=== PATIENT | female | born 1950 | race Caucasian/White ===

== ENCOUNTER 2021-07-20 15:13 | Emergency (ER) | payer OTHER, SELFPAY ==
[2021-07-20 15:15] VITALS: BP 150/69; PULSE 74; RESP 18; TEMP 36; O2SAT 99; BMI 35.7
--- NOTE | 2021-07-20 18:19 | ED_ITS ---
HPI - General Adult General Chief complaint: Extremity Injury, Lower Stated complaint: back in back of left knee Time Seen by Provider: 07/20/21 18:17 Source: patient Mode of arrival: ambulatory Limitations: no limitations History of Present Illness HPI narrative: Patient is a 70 year old female presenting to the emergency department today with left knee pain. Patient states that for the last 3 days, she has had pain behind her left knee. Patient denies any dizziness, lightheadedness, abdominal pain, nausea, vomiting, fever, chills, blurry vision, double vision, loss of vision, chest pain, difficulty breathing, shortness of breath, back pain, night sweats, pain with urination, increased urinary frequency, increased urinary urgency, blood in her urine or stool, syncope or a near syncopal episode, recent trauma or falls, bowel incontinence, bladder incontinence, bowel retention, bladder retention, or any other complaints at this time. Onset (ago): day(s) (3) Location: left and lower extremity Radiation: non-radiation Severity: mild Severity scale (1-10): 1 Quality: dull Pain Consistency: constant Relieving factors: none Exacerbating factors: movement Associated symptoms: denies other symptoms Treatments prior to arrival: none Related Data Previous Rx's Medication Instructions Recorded prednisone 20 mg tablet 20 mg PO DAILY 12 days #26 tabs 07/20/21 Allergies Allergy/AdvReac Type Severity Reaction Status Date / Time No Known Allergies Allergy Unverified 10/30/19 18:13 Review of Systems Constitutional: Constitutional: Reports no additional constitutional complaints, Denies chills, Denies fever(s) and Denies night sweats Eyes: Eyes: Reports no additional eye complaints, Denies blurry vision, Denies change in vision, Denies diplopia, Denies eye discharge, Denies loss of vision and Denies eye pain ENT: Denies dizziness Cardiovascular: Cardiovascular: Reports no additional cardiovascular complaints, Denies chest pain, Denies lightheadedness, Denies Loss of Consciousness and Denies dyspnea Respiratory: Respiratory: Reports no additional respiratory complaints and Denies dyspnea Gastrointestinal: Gastrointestinal: Reports no additional gastrointestinal complaints, Denies abdominal pain, Denies melena, Denies hematochezia, Denies change in bowel habits and Denies change in stool character Genitourinary: Genitourinary: Denies hematuria, Denies urinary frequency, Denies dysuria, Denies urinary incontinence, Denies urinary hesitancy and Denies urinary urgency Musculoskeletal: Musculoskeletal: Reports no additional musculoskeletal complaints, Denies numbness and Denies tingling Comments: left knee pain Neurologic: Denies dizziness, Denies loss of vision, Denies numbness and Denies tingling Psychiatric: Psychiatric: Reports no additional psychiatric complaints Endocrine: Endocrine: Reports no additional endocrine complaints Hematologic/Lymphatic: Hematologic/Lymphatic: Reports no additional hematologic/lymphatic complaints Allergic/Immunologic: Allergic/Immunologic: Reports no additional allergic/immunologic complaints [facility] Past Medical History Attestation statement: The following information was validated with the patient. Source: old records reviewed Social History Social History Advance Directives: No Advance Directives Information Provided: Yes Physical Exam ED Vital Signs: Vital Signs - 24 hr 07/20/21 15:15 Temperature 96.8 F Pulse Rate 74 Respiratory Rate 18 Blood Pressure 150/69 H Pulse Oximetry 99 Oxygen Delivery Method Room Air BMI result Body Mass Index 35.7 Const General: cooperative, no acute distress, alert and awake Nutritional Appearance: well nourished Orientation/consciousness: patient oriented x3 Limitations: no limitations HENMT Head: Yes normal to inspection and Yes atraumatic Ears: hearing grossly normal bilaterally and external ears normal General nose exam: Normal external nose present, no nasal discharge noted and no epistaxis Face and sinus: Yes normal facial exam, No abrasion and No laceration Mouth: Normal oral and palatal mucosa present, no drooling and no muffled voice Eyes General: appearance normal, both eyes and all related structures Periorbital: periorbital findings normal Eyelids: Yes eyelids normal Conjunctivae: conjunctivae normal Pupils: Equal, round and reactive pupils present EOM: EOMs intact bilaterally Neck Neck: Yes normal visual inspection, Yes full ROM and Yes no lymphadenopathy Chest Chest palpation & inspection: normal inspection of the chest Resp Effort & Inspection: normal respiratory effort and able to speak in complete sentences Auscultation: clear to auscultation bilaterally Cardio Rate: regular rate Rhythm: regular rhythm GI Inspection: Yes normal to inspection Neuro General: patient oriented x3 and moves all extremities Cranial nerves: Yes Equal, round and reactive pupils present Cognition (Neuro): normal cognition Motor exam (neuro): 5/5 motor strength present throughout Sensory Exam: Normal double simultaneous stimulation for sensation Coordination: [id number] test normal Extrem General: Yes normal to inspection, Yes full ROM and Yes capillary refill normal Psych Appearance: grossly normal Mental Status: mental status grossly normal Affect: normal affect Attitude: cooperative Thought process: Normal thought process present Thought content: Normal thought content present Insight: Good insight present (Psych) Medical Decision Making MDM Narrative Medical decision making narrative: Patient is a 70 year old female presenting to the emergency department today with left knee pain. Patient's physical exam was unremarkable. Due to the patient's negative physical examination and her clinical presentation, I am suspicious of a bakers cyst. The patient did not have any calf pain, calf swelling, calf warmth, or calf redness. I was not suspicious for a DVT. I explained my physical exam findings to the patient. I answered all questions asked by the patient. Patient received IM Solu-medrol which she stated helped her symptoms significantly. I stressed the importance of the patient taking her medication as prescribed. I stressed the importance of the patient following up with her primary care provider and an orthopedic provider. I stressed the importance of the patient returning to the emergency department immediately if her symptoms were to worsen or if she were to develop any dizziness, shortness of breath, difficulty breathing, chest pain, blurry vision, loss of vision, nausea, vomiting, abdominal pain, fever, chills, back pain, or any other complaints. Patient verbalized agreement and understanding with this treatment plan and discharge. Differential Diagnosis Differential Diagnosis: bakers cyst, knee pain, internal knee injury Medical Records Medical records reviewed: Yes I reviewed the patient's medical records. Discharge Plan Discharge Clinical Impression: Dawson's cyst of knee Patient Disposition: Home, Self-Care Instructions: Bakers Cyst (ED) Additional Instructions: Follow up with your primary care provider and orthopedist. Return to the emergency department immediately if your symptoms worsen or if you develop any dizziness, shortness of breath, difficulty breathing, chest pain, blurry vision, loss of vision, nausea, vomiting, abdominal pain, fever, chills, back pain, or any other complaints. Prescriptions: New prednisone 20 mg tablet 20 mg PO DAILY 12 Days Qty: 26 0RF Rx Instructions: Take 3 tablets for 5 days THEN; Take 2 tablets for 4 days THEN; Take 1 tablet for 3 days Referrals: [facility] [Provider Group] Thibodeaux,Quirino, [employer] [Primary Care Provider] - Interventions: ED Discharge Assessment Last Done: 07/20/21 19:05 Discharge Date/Time: 07/20/21 19:10 Print Language: Filipino
[2021-07-20] MEDS: methylPREDNISolone Sod Succ 125 MG/2 ML VIAL 120 MG IM (19:06)
== END 2021-07-20 19:10 | disposition home or self-care (01) ==
PROVIDERS: Emergency Provider Internal Medicine; PCP Nurse Practitioner Primary Care
DX: M71.22 Synovial cyst of popliteal space [Baker], left knee (principal); M25.562 Pain in left knee
CPT/HCPCS: 96372; 99283; 99284; J2930

== ENCOUNTER 2021-08-16 07:34 | Outpatient (REF) | payer OTHER, SELFPAY ==
--- NOTE | ~2021-08-16 | XR_ITS ---
EXAMINATION: XR AP KNEE STANDING XR KNEE, LEFT CLINICAL INFORMATION: Bilateral knee pain. COMPARISON: None TECHNIQUE: AP standing view of bilateral knees. Lateral and sunrise views of the left knee. FINDINGS: Mild bilateral medial tibiofemoral cartilage space with marginal osteophyte. Mild left patellofemoral cartilage space loss with retropatellar osteophytes. Quadriceps tendon enthesopathy. No significant joint effusion. XR/XR knee standing BI IMPRESSION: Mild osteoarthritis of bilateral knees.
--- NOTE | ~2021-08-16 | XR_ITS ---
EXAMINATION: XR AP KNEE STANDING XR KNEE, LEFT CLINICAL INFORMATION: Bilateral knee pain. COMPARISON: None TECHNIQUE: AP standing view of bilateral knees. Lateral and sunrise views of the left knee. FINDINGS: Mild bilateral medial tibiofemoral cartilage space with marginal osteophyte. Mild left patellofemoral cartilage space loss with retropatellar osteophytes. Quadriceps tendon enthesopathy. No significant joint effusion. XR/XR knee LT 2V IMPRESSION: Mild osteoarthritis of bilateral knees.
== END 2021-08-16 07:35 | disposition home or self-care (01) ==
LOC: HO.HOSX 07:34
PROVIDERS: Visit Provider Physician Assistant
DX: M17.12 Unilateral primary osteoarthritis, left knee (principal)
CPT/HCPCS: 20610; 73560; 73565; 99202; J1020

== ENCOUNTER 2021-09-20 15:00 | Outpatient (RCR) | payer OTHER, SELFPAY ==
--- NOTE | 2021-08-31 17:16 | MHC.PT.EP ---
[facility] [place] Office [place] Office [place] [facility] [address] [phone] F: [phone] F: [phone] F: [phone] F: [phone] Physical Therapy Plan of Care Date of Evaluation: Date of Surgery: Diagnosis: R knee OA Assessment: Pt is a 70 y/o female referred to PT for eval and treat of OA of L knee who reports an acute onset of pain resulting in decreased tolerance for walking and standing for duration, exiting a vehicle, negotiating curbs and performing squatting activities secondary to decreased L knee ROM and strength, decreased B hip strength, TTP of posterior and medial L knee, and pain with activity. Pt is deemed an appropriate candidate to receive skilled PT in order to address her physical limitations to improve her functional ability. Frequency and Duration: The patient will be seen 2 x / wk x 5 wks. Short Term Goals: Initiate HEP. Improve baseline pain Correction Goals: I with HEP. Pt will be able to walk 2 blocks with at most a little bit of difficulty; initial: quite a bit of difficulty. Pt will report no longer painful entering and exiting a vehicle. Improve L knee extension MMT by at least 1 MMT; initial 4-/5 limited by pain. Treatment Plan: Modalities to reduce pain, spasms and effusion. Manual therapy to restore motion and function. Therapeutic exercise to improve strength and flexibility. Neuromuscular re-education for posture and balance. Therapeutic activities to return to functional activities of daily living. Electronically signed by: Bakari Bar PT. Please sign and return to therapist. Thank you for your referral.
== END 2021-09-20 19:36 | disposition home or self-care (01) ==
LOC: HO.PTCHIC 15:00
PROVIDERS: PCP Nurse Practitioner Primary Care; Visit Provider Physician Assistant
DX: M17.12 Unilateral primary osteoarthritis, left knee (principal)
CPT/HCPCS: 97110; 97112; 97140; 97150; 97161

== ENCOUNTER 2022-06-26 18:05 | Emergency (ER) | payer OTHER, SELFPAY ==
--- NOTE | ~2022-06-26 | XR_ITS ---
EXAMINATION: XR CHEST CLINICAL INFORMATION: Flulike symptoms. Cough. COMPARISON: Previous chest x-ray from 2011 TECHNIQUE: Frontal view of the chest was obtained. FINDINGS: No significant abnormality is noted involving the heart, lungs, mediastinum, bony thorax or soft tissues. XR/XR chest 1V IMPRESSION: Unremarkable examination.
--- NOTE | 2022-06-26 18:34 | ED.GENADULT ---
HPI - General Adult General Chief complaint: General Medical Stated complaint: ear nose throat Time Seen by Provider: 06/26/22 19:40 Source: patient Mode of arrival: ambulatory Limitations: no limitations History of Present Illness HPI narrative: A 71-year-old female came in for evaluation of runny nose, nasal congestion, coughing, facial pressure, left ear pain. Patient just flew from [place] exposed to her sick brother with pneumonia. Related Data Home Medications Medication Instructions Recorded Confirmed blood sugar diagnostic (OrangeSodaTouch #10 ea 08/16/21 Verio test strips) blood-glucose meter (OrangeSodaTouch #1 ea 08/16/21 Verio Flex Meter) famotidine 20 mg tablet 20 mg PO DAILY 08/16/21 gabapentin 100 mg capsule 100 mg PO BEDTIME 08/16/21 hydrochlorothiazide 25 mg tablet 25 mg PO DAILY 08/16/21 lancets 30 gauge (OrangeSodaTouch Delica #100 ea 08/16/21 Plus Lancet) losartan 100 mg tablet 100 mg PO DAILY 08/16/21 metformin 500 mg tablet,extended 500 mg PO BID 08/16/21 release 24 hr metoprolol succinate 200 mg 200 mg PO DAILY 08/16/21 tablet,extended release 24 hr omeprazole 40 mg capsule,delayed 40 mg PO DAILY 08/16/21 release rosuvastatin 5 mg tablet 5 mg PO DAILY 08/16/21 sucralfate 1 gram tablet 1 g PO QID 08/16/21 Previous Rx's Medication Instructions Recorded prednisone 20 mg tablet 20 mg PO DAILY 12 days #26 tabs 07/20/21 amoxicillin 875 mg-potassium 1 tab PO BID #20 tabs 06/26/22 clavulanate 125 mg tablet erythromycin 5 mg/gram (0.5 %) eye 0.5 inch ophthalmic (eye) QID #50 06/26/22 ointment grams Allergies Allergy/AdvReac Type Severity Reaction Status Date / Time No Known Allergies Allergy Unverified 08/16/21 14:40 Review of Systems Review of Systems: All other systems are reviewed and are negative Constitutional: Reports as per HPI and Reports no additional constitutional complaints Eyes: Reports as per HPI and Reports no additional eye complaints Reports system reviewed and no additional complaints, except as documented Cardiovascular: Reports as per HPI and Reports no additional cardiovascular complaints Respiratory: Reports as per HPI and Reports no additional respiratory complaints Gastrointestinal: Reports as per HPI and Reports no additional gastrointestinal complaints Genitourinary: Reports no additional female genitourinary complaints Musculoskeletal: Reports no additional musculoskeletal complaints Skin/Breast: Reports system reviewed and no additional complaints, except as docu Psychiatric: Reports no additional psychiatric complaints Endocrine: Reports no additional endocrine complaints Hematologic/Lymphatic: Reports no additional hematologic/lymphatic complaints Allergic/Immunologic: Reports no additional allergic/immunologic complaints Reports system reviewed and no additional complaints, except as documented and Reports Abnormal speech present [facility] Social History Social History Advance Directives: No Advance Directives Information Provided: Yes Physical Exam ED Vital Signs: Vital Signs - 24 hr 06/26/22 18:35 Temperature 98.5 F Pulse Rate 88 Respiratory Rate 18 Blood Pressure 158/81 H Pulse Oximetry 97 Oxygen Delivery Method Room Air BMI result Body Mass Index 36.3 Vital signs have been reviewed as appeared to be correct. Blood pressure normal. Heart rate normal. Respiration rate normal. Temperature normal. Oxygen saturation normal. Appearance: Alert. Oriented X3. No acute distress. Head: Normal external exam. Normocephalic. Atraumatic. No Victor signs noted. No raccoon eyes noted Eyes: PERRLA. EOMI. Bilateral Conjunctival injection with creamy discharge from both eyes.. Eyelids normal. ENT: Left TM erythema, left maxillary sinus tenderness on percussion . Pharynx erythematous. Uvula midline. Moist mucous membranes. No trismus noted. No drooling noted. No muffled voice noted. Neck: Normal inspection. Neck supple. FROM. No adenopathy. Thyroid Normal. No meningeal signs. No neck mass noted. CVS: Normal heart rate and rhythm. Heart sound normal. No murmurs noted. Pulses normal throughout. Respiratory: No respiratory distress. Painless inspiration. Breath sounds normal. No wheezes/rales/rhonchi noted. Chest nontender. No accessory muscle usage noted or decreased air movement noted. Abdomen: Soft and nontender. Bowel sounds normal in all 4 quadrants. No distention noted. No organomegaly noted. No visible injury noted. Back: No CVA tenderness. Full range of motion noted. Skin: Skin warm and dry. Normal skin color. Normal skin turgor. No rashes/lesions/lacerations noted. Extremities: No lower extremity edema. Extremities exhibit normal range of motion. Extremities nontender. Neuro: Oriented X 3. Cranial nerve exam: II-XII are grossly intact No motor deficit. No sensory deficit. Reflexes normal. Course Course Course Narrative: This is a rapid medical exam. Deferred additional HPI, ROS, PE to primary provider. 71yo female with history of osteoarthritis, DM, HTN here with complaints of headache, nasal congestion, sore throat, rhinorrhea, left ear pain since yesterday. Did not take covid test at home. Will check covid screen. VSS Reevaluation(s) Reevaluation #1: Left TM erythema/left maxillary sinus tenderness will start patient on Augmentin for sinusitis and OM. Patient also showing bilateral conjunctivitis will start on erythromycin ointment. Time: 20:07 Medical Decision Making Differential Diagnosis Differential Diagnoses: The differential diagnosis associated with the presentation includes (OM, sinusitis, viral upper respiratory infection, pneumonia.) Lab Data MDM Lab Attestation statement: I reviewed the patient's lab results. Labs: Lab Results 06/26/22 06/26/22 Range/Units 19:09 20:16 COVID-19 ([facility]ICK) Negative (Negative) COVID-19 Clin Com See Note Influenza Type A (PCR) NEGATIVE (Negative) Influenza Type B (PCR) NEGATIVE (Negative) RSV RNA Qual (PCR) NEGATIVE (Negative) SARS-CoV-2 RNA (RT-PCR) NEGATIVE (Negative) Independent Interpretation I performed an independent interpretation of an: Plain X-Ray (Chest: No acute intrathoracic pathology.) Radiology Impression Discussion of test interpretation with radiology: I have reviewed the radiologist's reading. Discharge Plan Discharge Clinical Impression: Acute left otitis media, Left maxillary sinusitis, Acute bacterial conjunctivitis Patient Disposition: Home, Self-Care Instructions: Sinusitis (ED), Ear Infection (ED) Prescriptions: New amoxicillin-pot clavulanate 875-125 mg tablet 1 tab PO BID Qty: 20 0RF erythromycin 5 mg/gram (0.5 %) ointment 0.5 inch ophthalmic (eye) QID Qty: 50 0RF Rx Instructions: Apply to both eyes every 2-4 hours while awake for 5 days. No Action prednisone 20 mg tablet 20 mg PO DAILY 12 Days Qty: 26 0RF Rx Instructions: Take 3 tablets for 5 days THEN; Take 2 tablets for 4 days THEN; Take 1 tablet for 3 days gabapentin 100 mg capsule 100 mg PO BEDTIME metformin 500 mg tablet extended release 24 hr 500 mg PO BID (DME) lancets [OneTouch Delica Plus Lancet] 30 gauge misc See Rx Instructions .ROUTE .MEDSUPPLY Qty: 100 Rx Instructions: As directed (DME) OneTouch Verio test strips Strip See Rx Instructions Not Applicable DAILY Qty: 10 Rx Instructions: As directed losartan 100 mg tablet 100 mg PO DAILY hydrochlorothiazide 25 mg tablet 25 mg PO DAILY metoprolol succinate 200 mg tablet extended release 24 hr 200 mg PO DAILY rosuvastatin 5 mg tablet 5 mg PO DAILY (DME) blood-glucose meter [[employer] Verio Flex meter] Misc See Rx Instructions .ROUTE .MEDSUPPLY Qty: 1 Rx Instructions: As directed omeprazole 40 mg capsule,delayed release(DR/EC) 40 mg PO DAILY sucralfate 1 gram tablet 1 g PO QID famotidine 20 mg tablet 20 mg PO DAILY Referrals: Quirino Thibodeaux NP [Primary Care Provider] -
[2022-06-26 18:35] VITALS: BP 158/81; PULSE 88; RESP 18; TEMP 36.9; O2SAT 97; BMI 36.3
--- NOTE | 2022-06-26 19:09 | PC.NURSE ---
COVID swab collected and sent as ordered
[2022-06-26 19:48] LABS: COVID-19 Test Negative (Negative); IDNOW Serial# BCCEAD1C
[2022-06-26 21:02] LABS: Influenza A PCR NEGATIVE (Negative); Influenza B PCR NEGATIVE (Negative); Resp Syncy Virus RNA Qual PCR NEGATIVE (Negative); SARS COV2 PCR INHOUSE NEGATIVE (Negative)
[2022-06-26] MEDS: Amoxicillin/Potassium Clav 875 MG TABLET PO (21:18)
== END 2022-06-26 21:27 | disposition home or self-care (01) ==
PROVIDERS: Nurse Practitioner Family; Emergency Provider Emergency Medicine; PCP Nurse Practitioner Primary Care
DX: H66.92 Otitis media, unspecified, left ear (principal); J32.0 Chronic maxillary sinusitis; H10.32 Unspecified acute conjunctivitis, left eye; R05.9 Cough, unspecified; Z20.822 Contact with and (suspected) exposure to COVID-19; Z20.828 Contact with and (suspected) exposure to other viral communicable diseases; Z79.899 Other long term (current) drug therapy
CPT/HCPCS: 0241U; 71045; 87635; 99282; 99283

== ENCOUNTER 2023-11-07 11:00 | Outpatient (RCR) | payer MEDICARE, OTHER, SELFPAY | END 2023-12-11 10:24 | disposition home or self-care (01) | LOC: HO.PT 11:00 | PROVIDERS: PCP Nurse Practitioner Primary Care; Visit Provider Physical Medicine & Rehabilitation | DX: E13.42 Other specified diabetes mellitus with diabetic polyneuropathy (principal) | CPT/HCPCS: 97110; 97140; 97161; 97530; 97535 ==